=== PATIENT | male | born 1995 | race Caucasian/White ===

== ENCOUNTER → 2023-09-03 | Outpatient (CLI) | payer OTHER ==
--- NOTE | 2023-09-03 13:03 | XR ---
EXAMINATION TYPE: XR foot complete RT, XR ankle complete RT DATE OF EXAM: 09/03/2023 12:23 PM CLINICAL INDICATION:Male, 28 years old with history of S93.401A, S93.601A; [facility] COMPARISON: None TECHNIQUE: XR foot complete RT, XR ankle complete RT examined in the AP, oblique, and lateral project ions. FINDINGS: No evidence of any acute osseous pathology. No evidence of soft tissue swelling. Joints are preserve d. IMPRESSION: No evidence of acute fracture.
== END | disposition home or self-care (01) ==
LOC: RADXRMAIN 12:10
PROVIDERS: ATTEND Emergency Medicine
DX: S93.401A Sprain of unspecified ligament of right ankle, initial encounter (principal); S93.601A Unspecified sprain of right foot, initial encounter

== ENCOUNTER → 2023-09-09 | Outpatient (CLI) | payer OTHER ==
--- NOTE | 2023-09-14 20:39 | MR ---
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 FINDINGS: No acute or healing fracture. Bone bruise within the plantar aspect of the mid navicular. There is pronounced capsular distention along the lateral aspect of the calcaneal cuboidal joint syno vial debris or 5 mm loose body within the distended joint capsule. Significant effusion with adjacent periarticular edema along the dorsal lateral aspect of the talonav icular joint. The tibiotalar joint and subtalar joints are intact with small posterior joint effusion. The syndesmosis and anterior extensor tendons appear intact. Mild tenosynovial fluid along the peroneal tendons which otherwise remain intact. The lateral ligamen tous complex appears intact. Mild thickening of the posterior tibial tendon suggesting tendinosis with scattered tenosynovial flui d along the medial flexor tendons. The deltoid ligament complex appears intact. There is some edema along the medial plantar oblique ligament of the spring ligament. The superomedia l and inferolateral plantar portions appear intact. Subtalar joint appears aligned and intact. Preserved fatty signal within the sinus Tarsi. Tarsal tunn el is clear. Achilles tendon and origin of the plantar fascia are intact. IMPRESSION: 1. Joint capsular sprains especially along the lateral aspect of the calcaneal cuboidal joint. The ca psule here is edematous and distended and contains some synovial debris or tiny 5 mm loose body. 2. Additional capsular sprain along the dorsolateral aspect of the talonavicular joint. Adjacent soft tissue swelling. 3. No acute or healing fracture is identified. Bone bruise within the plantar aspect of the mid navic ular. 4. Mild sprain of the medial plantar oblique ligament of the spring ligament.
== END | disposition home or self-care (01) ==
LOC: RADMRIMAIN 20:15
PROVIDERS: ATTEND Emergency Medicine
DX: S93.401D Sprain of unspecified ligament of right ankle, subsequent encounter (principal); M24.071 Loose body in right ankle; M79.89 Other specified soft tissue disorders; S93.601D Unspecified sprain of right foot, subsequent encounter; X58.XXXD Exposure to other specified factors, subsequent encounter